=== PATIENT | male | born 1955 | race Caucasian/White ===

== ENCOUNTER → 2018-01-01 12:59 | Outpatient (CLI) | payer MEDICARE, MEDICAID, SELFPAY ==
--- NOTE | 2018-01-01 | DI.CT.S_ITS ---
PROCEDURE: CT ABDOMEN WO/W CON INDICATIONS: SURVEILLLANCE RENAL CELL CARCINOMA LEFT KIDNEY TECHNIQUE: Optional 5 mm thick noncontrast images acquired from the diaphragm to the iliac crests. After the administration of intravenous contrast, 5 mm thick images again acquired from the diaphragm to the iliac crests in the arterial and urographic phases. 5 mm thick coronal and sagittal reformats were then acquired. For radiation dose reduction, the following was used: automated exposure control, adjustment of mA and/or kV according to patient size. COMPARISON: [facility], CR, XR CHEST 2 VIEWS, 05/03/2017, 15:11. Also, within the [facility] comparison CT from 02/27/17 showing a rounded masslike structure projecting from the upper posterior atrophic left renal cortical border. FINDINGS: Image quality: Excellent. Lung bases: Lung bases are clear. Heart size is normal. Genitourinary: Interval left nephrectomy. No operative complications seen. Right kidney is well visualized and appears free of obstruction or mass. Other solid organs: Liver is normal in size and enhancement. Gallbladder contains multiple calcifications and is contracted as was previously the case Biliary system is non dilated. Pancreas enhances normally. Spleen is normal in size and enhancement. No adrenal nodules. Peritoneum and bowel: Unenhanced bowel loops are normal in wall thickness and caliber. No free fluid or air. Nodes and vessels: No retroperitoneal or mesenteric adenopathy by size criteria. Aorta and inferior vena cava are normal in caliber. Bones: No suspicious bony lesions. No vertebral body compression fractures. Miscellaneous: No ventral hernias. IMPRESSION: Interval resection of the left kidney subsequent to the comparison study from February 2017. No evidence of recurrent neoplasm at the operative bed. No operative complications seen. Normal-appearing right kidney. No sign of metastatic disease. Dictated by: Raf Elizabeth M.D. on 01/01/2018 at 14:47 Approved by: Raf Elizabeth M.D. on 01/01/2018 at 15:01
== END ==
PROVIDERS: Visit Provider Urology
DX: C64.2 Malignant neoplasm of left kidney, except renal pelvis (principal)
CPT/HCPCS: 74170; Q9967

== ENCOUNTER → 2018-07-20 14:33 | Outpatient (CLI) | payer MEDICARE, MEDICAID, SELFPAY ==
--- NOTE | 2018-07-20 | DI.ECHO.S_ITS ---
[facility]---------+ [facility] +---------+ : : [address] : : : : [id number] : : : : Phone: [phone]+ Echocardiogram Report + + :Name: MARLON ANDERSON JR Study Date: 07/20/2018 Height: 67 in : :[facility] Weight: 235 lb : : Gender: Male BSA: 2.2 m2 : :: 1955 Age: 63 yrs BP: 130/50 mmHg: :Reason For Study: Hypertension : : Performed By: Mary Beth tSroud : :Referring: Dickson Maldonado : + + Interpretation Summary 1) Normal left ventricular thickness, size, wall motion, and systolic function (EF 60-65%). 2) Normal right ventricular size and function. 3) No significant valvular abnormalities. 4) no prior Echo available for comparison. Procedure: A two-dimensional transthoracic echocardiogram with color flow and Doppler was performed. The study quality was technically adequate. There is no prior echocardiogram noted for this patient. The patient was in normal sinus rhythm during the exam. Left Ventricle: The left ventricle is normal in size, wall thickness, and systolic function without any focal wall motion abnormalities. The ejection fraction is estimated to be 60-65%. Diastolic parameters suggest a relaxation abnormality of the left ventricle, consistent with probable normal filling pressures. Right Ventricle: The right ventricle grossly appears normal in size with probable normal systolic function. Atria: The left atrial size is normal. Right atrial size is normal. The interatrial septum is intact with no evidence for an atrial septal defect. Mitral Valve: The mitral valve is normal in structure and function. There is no mitral regurgitation noted. Aortic Valve: The aortic valve is trileaflet. The aortic valve opens well. There is no aortic valve stenosis. No aortic regurgitation is present. Tricuspid Valve: The tricuspid valve is normal in structure and function. There is trace tricuspid regurgitation. The right ventricular systolic pressure is estimated to be at least 36 mmHg based on an estimated right atrial pressure of 3 mm Hg. Pulmonic Valve: The pulmonic valve is normal in structure and function. There is trace pulmonic regurgitation. Great Vessels: The aortic root is normal size. The dimensions of the ascending aorta are normal. The aortic arch is normal in size. The IVC is of normal diameter and collapses greater than 50% with a sniff. This suggests a low right atrial pressure of 3 mm Hg. Pericardium/ Pleura There is no pericardial effusion. There is no pleural effusion. MMode/2D Measurements & Calculations LVIDd: 5.0 cm Ao root diam: 3.4 cm LVIDs: 2.7 cm Aortic Jxn: 2.9 cm FS: 47.1 % asc Aorta Diam: 3.4 cm EPSS: 0.00 cm Ao Arch Diam (Prox Trans): 2.9 cm IVSd: 1.0 cm LVPWd: 0.84 cm LV crowe. diameter/BSA (cm/m^2): 2.3 LV sys. diameter/BSA (cm/m^2): 1.2 LA dimension: 4.1 cm RA long axis: 3.8 cm LA A2 area: 16.7 cm2 RA area: 10.8 cm2 LA A4 area: 16.9 cm2 RA vol: 26.2 ml LA length (vol): 4.7 cm RA : 12.1 ml/m2 LA vol: 51.2 ml IVC diam: 0.92 cm LA vol index: 23.6 ml/m2 RVDd major: 4.7 cm RVD1 (basal): 3.3 cm RVD2 (mid): 2.6 cm Doppler Measurements & Calculations MV E max deep: 82.8 cm/sec TR max deep: 289.0 cm/sec MV A max deep: 96.0 cm/sec TR max P.4 mmHg MV E/A: 0.86 PA V2 max: 102.3 cm/sec Med Peak E' Deep: 7.5 cm/sec PA V2 mean: 69.4 cm/sec E/E' med: 11.1 PA mean P.2 mmHg Lat Peak E' Deep: 7.5 cm/sec PA Accel Time: 0.12 sec E/E' lat: 11.1 E/e' average: 11.1 MV dec time: 0.22 sec MV P1/2t: 66.1 msec MV P1/2t max deep: 82.4 cm/sec MVA(P1/2t): 3.3 cm2 Reading Physician:01:11 PM
== END ==
PROVIDERS: Family Provider Internal Medicine Cardiovascular Disease; Visit Provider Internal Medicine Cardiovascular Disease
DX: I10 Essential (primary) hypertension (principal)
CPT/HCPCS: 93306